=== PATIENT | female | born 1970 | race Asian ===

== ENCOUNTER 2023-12-11 08:04 | Outpatient (CLI) | payer OTHER, SELFPAY ==
--- OUTSIDE RECORDS SUMMARY | 2023-12-15 10:05 | XMS_ITS | Clinical Summary ---
Author Name Unknown Organization [facility] Address [place], [place] [address] Care Team Providers Care Electronic Systems Security Assessment Name Role Phone Eliza Lopez MD Primary [...] Procedure Name Priority Date/Time Associated Diagnosis Comments ANIMAL CAREGIVER THIN PREP PAP SCREEN IMAGED Routine 11/26/2014 11:45 AM CDT from Last 3 Months or Most Recently Relevant to Health Maintenance Results * ANIMAL CAREGIVER THIN PREP PAP SCREEN IMAGED (11/26/2014 11:45 AM CDT) ANIMAL CAREGIVER CYTOLOGY See Anatomic Pathology case 12/01/2014 2:01 PM CDT [facility] Specimen (specimen) (Cervical/Vagina l) Client Collect / Unknown 11/26/2014 11:45 AM CDT 11/26/2014 1:23 PM CDT Myriam Escamilla NP PATHOLOGY/CYTOLOGY [facility] [address] [place] [address], from Last 3 Months or Most Recently Relevant to Health Maintenance Care Teams Electronic Systems Security Assessment Relationship Specialty Start Date End Date Eliza Lopez MD [address] [place] [address] PCP - General Family Practice 02/22/16
== END 2023-12-11 08:05 | disposition home or self-care (01) ==
LOC: NFLDREF 12-15 10:03
PROVIDERS: PCP Family Medicine; Referring Provider Family Medicine; Visit Provider Family Medicine
DX: E78.5 Hyperlipidemia, unspecified (principal); I10 Essential (primary) hypertension
CPT/HCPCS: 80053; 80061

== ENCOUNTER 2023-12-13 10:34 | Outpatient (CLI) | payer OTHER, SELFPAY ==
--- OUTSIDE RECORDS SUMMARY | 2023-12-13 10:39 | XMS_ITS | Clinical Summary ---
Author Name Unknown Organization [email or web address] Address [place], [place] [address] Care Team Providers Care Bilingual Medical Assistant Name Role Phone Eliza Lopez MD Primary Care Provider + Allergies No known active allergies Medications Medication Sig Dispensed Refills Start Date End Date Status ferrous sulfate, 65 mg elemental, tablet Take 1 tablet by mouth once daily with a meal. 0 11/18/2015 Active Cholecalciferol, Vitamin D3, (VITAMIN D-3) 5,000 unit tab Take by mouth once daily. 0 11/18/2015 Active ibuprofen (ADVIL; MOTRIN) 600 mg tablet Take 1 tablet by mouth 4 times daily if needed. Maximum of 3200 mg in 24 hours. 0 11/18/2015 Active fexofenadine (BEATRICE) 180 mg tablet Take 1 tablet by mouth once daily with a meal. 0 02/22/2016 Active amoxicillin (AMOXIL) 500 mg capsule Take 1 capsule by mouth 3 times daily. 30 capsule 0 05/16/2016 Active Active Problems Problem Noted Date Diagnosed Date Left ureteral injury 11/18/2015 Family History Medical History Relation Name Comments Good Health Father Good Health Mother Relation Name Status Comments Father Mother Social History Tobacco Use Types Packs/Day Years Used Date Smoking Tobacco: Never Smokeless Tobacco: Never Tobacco Cessation:Counseling Given: Yes Alcohol Use Standard Drinks/Week Comments No 0 (1 standard drink = 0.6 oz pur e alcohol) Sex and Gender Information Value Date Recorded Sex Assigned at Not on file Gender Identity Not on file Sexual Orientation Not on file Obstetrics History Last Filed Vital Signs Vital Sign Reading Time Taken Comments Blood Pressure 143/94 05/16/2016 10:13 AM CDT Pulse 84 05/16/2016 10:13 AM CDT Temperature 36.7 ??C (98 ??F) 05/16/2016 10:13 AM CDT Respiratory Rate - - Oxygen Saturation 99% 05/16/2016 10:13 AM CDT Inhaled Oxygen Concentration - - Weight 73.3 kg (161 lb 9.6 oz) 05/16/2016 10:13 AM CDT Height 148.3 cm (4' 10.37) 05/16/2016 10:13 AM CDT Body Mass Index 33.35 05/16/2016 10:13 AM CDT Plan of Treatment Health Maintenance Due Date Last Done Comments Tdap 11/11/1983 Depression screening for age 12+ 1984 HIV for age 15-65 11/11/1987 Hepatitis C screening for age 18-79 1990 Tetanus booster 1992 BMI (ht and wt on same day) for age 18+ 05/16/2017 05/16/2016, 04/11/2016, 02/22/2016, Additional history exists Colonoscopy through age 75 2017 Lipids for age 45-75 2017 Mammogram for age 45-75 2017 Pap test for age 21-65 11/26/2017 11/26/2014, 2014 Zoster (shingles) series for age 50+ (1 of 2) 2022 COVID-19 vaccine series ( - 2022-24 season) 2023 Influenza for age 50-64 05/05/2024 Pneumococcal series for age 6-64 Aged Out No longer eligible based on patient's age to complete this topic Procedures Procedure Name Priority Date/Time Associated Diagnosis Comments CHINA PAINTER THIN PREP PAP SCREEN IMAGED Routine 11/26/2014 11:45 AM CDT from Last 3 Months or Most Recently Relevant to Health Maintenance Results * CHINA PAINTER THIN PREP PAP SCREEN IMAGED (11/26/2014 11:45 AM CDT) CHINA PAINTER CYTOLOGY See Anatomic Pathology case 12/01/2014 2:01 PM CDT [facility] Specimen (specimen) (Cervical/Vagina l) Client Collect / Unknown 11/26/2014 11:45 AM CDT 11/26/2014 1:23 PM CDT Myriam Escamilla NP PATHOLOGY/CYTOLOGY [facility] [address] [place] [address], from Last 3 Months or Most Recently Relevant to Health Maintenance Care Teams Bilingual Medical Assistant Relationship Specialty Start Date End Date Eliza Lopez MD [address] [place] [address] PCP - General Family Practice 02/22/16
== END 2023-12-13 10:35 | disposition home or self-care (01) ==
LOC: NFLDREF 10:34
PROVIDERS: PCP Family Medicine; Visit Provider Family Medicine
DX: E55.9 Vitamin D deficiency, unspecified (principal)
CPT/HCPCS: 82306